=== PATIENT | male | born 1990 | race Caucasian/White ===

== ENCOUNTER → 2020-12-16 | Outpatient (CLI) | payer OTHER ==
[~2020-12-16] MED LIST: IBUPROFEN600 MG PO; OMNICEF 300 MG300 MG PO; ZITHROMAX250 MG PO
== END ==
LOC: KOH-I 08:58
DX: R06.02 Shortness of breath (principal)
CPT/HCPCS: 71046

== ENCOUNTER 2021-02-26 15:17 | Emergency (ER) | payer OTHER ==
[2021-02-26 16:19] LABS: HEMOGLOBIN 13.5 gm/dl (14.0-17.5); RED BLOOD COUNT 5.25 M/UL (4.20-5.50); WHITE BLOOD COUNT 13.5 K/UL (4.5-11.0)
[2021-02-26 16:36] LABS: BUN/CREATININE RATIO 14 (0-10)
[2021-02-26] MEDS ORDERED: AUGMENTIN 875-1 EACH PO (20:34)
== END 2021-02-26 20:42 | disposition home or self-care (01) ==
LOC: ER1 15:17
PROVIDERS: Physician Assistant
DX: K52.9 Noninfective gastroenteritis and colitis, unspecified (principal); R30.0 Dysuria; Z93.3 Colostomy status; Z20.822 Contact with and (suspected) exposure to COVID-19
CPT/HCPCS: 71045; 80053; 81001; 83605; 83690; 85025; 87086; 96374; 99284; J2405; Q9967; U0002